=== PATIENT | female | born 1990 | race Caucasian/White ===

== ENCOUNTER 2017-08-24 21:54 | Observation (INO) | payer OTHER ==
[~2017-08-24] VITALS: Ht 157.5 cm; Wt 69.6 kg
[~2017-08-24 21:54] MED LIST: Bactrim Ds Tab1 EACH PO; CRANBERRY TABL1 EACH PO; PROBIOTIC1 EAC1 PO; Pyridium200 MG PO
[2017-08-24] MEDS ORDERED: ESCI10 PO (22:31)
[2017-08-24] MEDS ORDERED: IBUP400 PO (22:31)
[2017-08-24 22:53] LABS: BASOPHILS ABSOLUTE AUTO 0.03 K/mm3 (0.00-0.23); BASOPHILS PERCENT AUTO 0 % (0-2); EOSINOPHILS ABSOLUTE AUTO 0.13 K/mm3 (0.00-0.68); EOSINOPHILS PERCENT AUTO 2 % (0-6); Hemoglobin 12.3 g/dL (11.5-16.0); IMMATURE GRAN ABSOLUTE AUTO 0.02 K/mm3 (0.00-0.10); IMMATURE GRAN PERCENT AUTO 0 % (0-1); LYMPHOCYTES ABSOLUTE AUTO 2.03 K/mm3 (0.84-5.20); LYMPHOCYTES PERCENT AUTO 26 % (21-46); MONOCYTES ABSOLUTE AUTO 0.61 K/mm3 (0.16-1.47); MONOCYTES PERCENT AUTO 8 % (4-13); Mean Corpuscular HGB 26.6 pg (26.0-34.0); Mean Corpuscular HGB Conc 32.4 g/dL (31.5-36.5); Mean Corpuscular Volume 82 fL (80-100); NEUTROPHILS ABSOLUTE AUTO 5.15 K/mm3 (1.96-9.15); NEUTROPHILS PERCENT AUTO 65 % (41-73); Platelet Count 273 K/mm3 (150-400); RDW Coefficient Variation 14.4 % (11.7-14.2); RDW Standard Deviation 42.6 fL (35.1-46.3); Red Blood Cell Count 4.63 M/mm3 (3.80-5.20); White Blood Cell Count 7.97 K/mm3 (4.00-11.30)
[2017-08-24 23:12] LABS: Alanine Aminotransfer (ALT/SGP 24 U/L (12-78); Albumin, Blood 3.8 g/dL (3.4-5.0); Alk Phos 80 U/L (50-136); Anion Gap 8 mmol/L (6-16); Aspartate Aminotrans (AST/SGOT 10 U/L (12-37); Bilirubin, Total 0.2 mg/dL (0.1-1.0); Blood Urea Nitrogen 11 mg/dL (8-24); Bun/Creatinine Ratio 17.3 (12.0-20.0); CO2, Blood 24 mmol/L (21-32); Calcium, Blood 8.8 mg/dL (8.5-10.1); Chloride, Blood 107 mmol/L (98-108); Creatinine, Blood 0.64 mg/dL (0.40-1.00); Globulin, Blood 3.7 g/dL (2.2-4.0); Glomerular Filtration Rate >60 (60-); Glucose, Blood 89 mg/dL (70-99); Potassium, Blood 3.7 mmol/L (3.5-5.5); Sodium, Blood 139 mmol/L (136-145); Total Protein, Blood 7.5 g/dL (6.4-8.2)
[2017-08-25] MEDS ORDERED: PARO10 PO (03:32)
[2017-08-25] MEDS ORDERED: Percocet 7.5-31 EACH PO (15:27)
== END 2017-08-25 15:45 | disposition home or self-care (01) ==
LOC: ER 21:54 → SURS 21:55 → ER 08-25 00:39 → SURS 08-25 00:39
PROVIDERS: Emergency Medicine; Surgery
PROC: BF13YZZ Fluoroscopy of Gallbladder and Bile Ducts using Other Contrast (ICD-10-PCS; principal; 2017-08-25 10:45)
PROC: 0FT44ZZ Resection of Gallbladder, Percutaneous Endoscopic Approach (ICD-10-PCS; principal; 2017-08-25 10:45)
DX: K80.12 Calculus of gallbladder with acute and chronic cholecystitis without obstruction (principal); Z88.8 Allergy status to other drugs, medicaments and biological substances; F17.210 Nicotine dependence, cigarettes, uncomplicated; Z98.890 Other specified postprocedural states
CPT/HCPCS: 36415; 74300; 76705; 80053; 81000; 83690; 84703; 85025; 88304; 99285; C1729; G0378; J0690; J1100; J1170; J1885; J2405; J3010; J7030; J7120

== ENCOUNTER 2018-06-22 19:10 | Emergency (ER) | payer OTHER ==
[~2018-06-22] VITALS: Ht 160 cm; Wt 72.6 kg
[~2018-06-22 19:10] MED LIST changes: +ESCI10 PO; +IBUP400 PO; +PARO10 PO; +Percocet 7.5-31 EACH PO
[2018-06-22] MEDS ORDERED: HYDPAM25 PO (19:35)
[2018-06-22 20:00] LABS: BASOPHILS ABSOLUTE AUTO 0.02 K/mm3 (0.00-0.23); BASOPHILS PERCENT AUTO 0 % (0-2); EOSINOPHILS ABSOLUTE AUTO 0.04 K/mm3 (0.00-0.68); EOSINOPHILS PERCENT AUTO 0 % (0-6); Hematocrit 37.7 % (33.0-51.0); Hemoglobin 12.4 g/dL (11.5-16.0); IMMATURE GRAN ABSOLUTE AUTO 0.04 K/mm3 (0.00-0.10); IMMATURE GRAN PERCENT AUTO 0 % (0-1); LYMPHOCYTES ABSOLUTE AUTO 1.26 K/mm3 (0.84-5.20); LYMPHOCYTES PERCENT AUTO 10 % (21-46); MONOCYTES ABSOLUTE AUTO 0.45 K/mm3 (0.16-1.47); MONOCYTES PERCENT AUTO 4 % (4-13); Mean Corpuscular HGB 27.4 pg (26.0-34.0); Mean Corpuscular HGB Conc 32.9 g/dL (31.5-36.5); Mean Corpuscular Volume 83 fL (80-100); NEUTROPHILS ABSOLUTE AUTO 10.42 K/mm3 (1.96-9.15); NEUTROPHILS PERCENT AUTO 85 % (41-73); Platelet Count 305 K/mm3 (150-400); RDW Coefficient Variation 13.4 % (11.7-14.2); RDW Standard Deviation 40.8 fL (35.1-46.3); Red Blood Cell Count 4.53 M/mm3 (3.80-5.20); White Blood Cell Count 12.23 K/mm3 (4.00-11.30)
[2018-06-22 20:18] LABS: Alanine Aminotransfer (ALT/SGP 25 U/L (12-78); Albumin, Blood 3.9 g/dL (3.4-5.0); Albumin/Globulin Ratio 1.1 (0.8-1.8); Alk Phos 62 U/L (50-136); Anion Gap 7 mmol/L (6-16); Aspartate Aminotrans (AST/SGOT 10 U/L (12-37); Bilirubin, Total 0.1 mg/dL (0.1-1.0); Blood Urea Nitrogen 10 mg/dL (8-24); CO2, Blood 25 mmol/L (21-32); Calcium, Blood 8.5 mg/dL (8.5-10.1); Chloride, Blood 106 mmol/L (98-108); Creatinine, Blood 0.91 mg/dL (0.40-1.00); Globulin, Blood 3.6 g/dL (2.2-4.0); Glomerular Filtration Rate >60 (60-); Glucose, Blood 103 mg/dL (70-99); Potassium, Blood 3.4 mmol/L (3.5-5.5); Sodium, Blood 138 mmol/L (136-145); Total Protein, Blood 7.5 g/dL (6.4-8.2)
[2018-06-22 20:29] LABS: Source, Urine Clean Catch
[2018-06-22 20:36] LABS: Bilirubin, Urine Neg (Neg); Blood, Urine 1+ (Neg); Glucose Qualitative, Urine Neg (Neg); Ketones, Urine Neg (Neg); Leukocyte Esterase, Urine 1+ (Neg); Nitrite, Urine Neg (Neg); Protein, Urine Neg (Neg); Urobilinogen, Urine 1+ (Normal)
[2018-06-22 20:45] LABS: Appearance, Urine Clear (Clear); Color, Urine Yellow (P-Yellow)
[2018-06-22 20:47] LABS: Bacteria Not Seen /hpf; Squamous Epithelial Cells Rare /hpf (Few); White Blood Cells, Urine 0-2 /hpf (0-5)
[2018-06-22] MEDS ORDERED: MIRALAX17 GM PO (20:55)
== END 2018-06-22 21:20 | disposition home or self-care (01) ==
LOC: ER 19:10
DX: K59.00 Constipation, unspecified (principal); F41.9 Anxiety disorder, unspecified; F17.210 Nicotine dependence, cigarettes, uncomplicated
CPT/HCPCS: 36415; 80053; 81001; 81025; 83690; 85025; 99283

== ENCOUNTER 2018-08-03 11:32 | Emergency (ER) | payer OTHER ==
[~2018-08-03] VITALS: Ht 157.5 cm; Wt 72.6 kg
[~2018-08-03 11:32] MED LIST changes: +HYDPAM25 PO; +MIRALAX17 GM PO
== END 2018-08-03 12:23 | disposition home or self-care (01) ==
LOC: ER 11:32
DX: Z00.8 Encounter for other general examination (principal); Z88.8 Allergy status to other drugs, medicaments and biological substances; D64.9 Anemia, unspecified; F17.210 Nicotine dependence, cigarettes, uncomplicated
CPT/HCPCS: 71046; 99283-25

== ENCOUNTER 2018-11-11 06:58 | Day surgery (SDC) | payer BC, OTHER ==
[~2018-11-11] VITALS: Ht 154.9 cm; Wt 74.7 kg
[~2018-11-11 06:58] MED LIST changes: +Ferrous Sulfat325 M2 PO; +PRENATAL PLUS-1 EACH PO
[2018-11-11] MEDS ORDERED: Inderal 20 mg T20 MG PO (07:46)
--- NOTE | 2018-11-11 07:54 | NUR ---
11/11/18 0754 Chata Rodríguez V PT RESTING IN BED, SIDE RAILS IN PLACE, CALL LIGHT WITHIN REACH, VSS. PT TEACHING COMPLETED. PT DENIES PAIN, DISCOMFORT, AND QUESTIONS AT THIS TIME.
== END 2018-11-11 10:18 | disposition home or self-care (01) ==
LOC: ORSCSDS 06:58
PROVIDERS: Obstetrics & Gynecology
PROC: 0UT74ZZ Resection of Bilateral Fallopian Tubes, Percutaneous Endoscopic Approach (ICD-10-PCS; principal; 2018-11-11 08:15)
DX: Z30.2 Encounter for sterilization (principal); F17.210 Nicotine dependence, cigarettes, uncomplicated; Z79.899 Other long term (current) drug therapy
CPT/HCPCS: 88302; J0690; J1100; J1885; J2250; J2405; J2704; J2710; J3010; J7120

== ENCOUNTER 2018-11-25 08:05 | Day surgery (SDC) | payer BC, OTHER ==
[~2018-11-25 08:05] MED LIST changes: +Inderal 20 mg T20 MG PO
== END 2018-11-26 00:02 | disposition home or self-care (01) ==
LOC: MOI US 08:05
PROC: 0H9U3ZX Drainage of Left Breast, Percutaneous Approach, Diagnostic (ICD-10-PCS; principal; 2018-11-25)
DX: N60.02 Solitary cyst of left breast (principal)
CPT/HCPCS: 19000; 76942; 88108

== ENCOUNTER 2021-01-12 16:38 | Emergency (ER) | payer OTHER ==
[~2021-01-12] VITALS: Ht 160 cm; Wt 74.8 kg
== END 2021-01-12 18:03 | disposition left against medical advice (07) ==
LOC: ER 16:38
DX: R06.02 Shortness of breath (principal); R05 Cough; R50.9 Fever, unspecified; Z53.21 Procedure and treatment not carried out due to patient leaving prior to being seen by health care provider
CPT/HCPCS: 99284

== ENCOUNTER 2021-11-03 15:33 | Emergency (ER) | payer OTHER ==
[~2021-11-03] VITALS: Ht 154.9 cm; Wt 74.8 kg
== END 2021-11-03 17:43 | disposition home or self-care (01) ==
LOC: ER 15:33
DX: R07.89 Other chest pain (principal); F17.210 Nicotine dependence, cigarettes, uncomplicated; Z88.8 Allergy status to other drugs, medicaments and biological substances; Z91.09 Other allergy status, other than to drugs and biological substances
CPT/HCPCS: 71045; 93005; 93010

== ENCOUNTER 2023-07-24 23:08 | Emergency (ER) | payer OTHER ==
[~2023-07-24] VITALS: Ht 154.9 cm; Wt 76.2 kg
[2023-07-24 23:34] VITALS: BP 132/81
[2023-07-24] MEDS ORDERED: Cephalexin Monohydrate 500 MG Cap PO ONE (23:50)
[2023-07-24] MEDS ORDERED: CEPH500 PO (23:51)
== END 2023-07-24 23:55 | disposition home or self-care (01) ==
LOC: ER 23:08
DX: T23.251A Burn of second degree of right palm, initial encounter (principal); T31.0 Burns involving less than 10% of body surface; X10.1XXA Contact with hot food, initial encounter; Y93.G3 Activity, cooking and baking; Z88.8 Allergy status to other drugs, medicaments and biological substances; Z91.048 Other nonmedicinal substance allergy status
CPT/HCPCS: 99283; A9270

== ENCOUNTER → 2024-04-07 | Outpatient (CLI) | payer OTHER ==
[~2024-04-07] MED LIST changes: +CEPH500 PO
[2024-04-10 15:04] LABS: HEPATITIS B SURFACE ANTIGEN Negative (Negative)
[2024-04-10 15:21] LABS: HEPATITIS B SURFACE ANTIBODY 11.13 IU/L
[2024-04-10 15:56] LABS: HIV 1,2 COMBO ANTIGEN/ANTIBODY Negative (Negative)
[2024-04-11 06:01] LABS: HCV QNT BY NAAT (IU/ML) Not Detected; HCV QNT BY NAAT (LOG IU/ML) Not Detected; HCV QNT BY NAAT INTERP Not Detected (Not Detected)
== END ==
LOC: LAB SHORT 17:46 → LAB 17:46
PROVIDERS: Chiropractor
DX: Z20.9 Contact with and (suspected) exposure to unspecified communicable disease (principal)
CPT/HCPCS: 84460; 87340; 87389; 87522

== ENCOUNTER → 2024-08-02 | Outpatient (CLI) | payer OTHER ==
[~2024-08-02] MED LIST changes: +AMOX-CLAV 875-1 EAC5; +Cholecalciferol1 GM; +EZETIMIBE10 M6; +IBUP400; +LORAZEPAM0.5 MG
== END ==
LOC: LAB SHORT 09:18 → LAB 09:18
DX: R30.0 Dysuria (principal)
CPT/HCPCS: 87077; 87086; 87186

== ENCOUNTER 2024-08-08 20:29 | Emergency (ER) | payer OTHER ==
[~2024-08-08] VITALS: Ht 160 cm; Wt 68.0 kg
[~2024-08-08 20:29] MED LIST changes: -AMOX-CLAV 875-1 EAC5; -Cholecalciferol1 GM; -EZETIMIBE10 M6; -IBUP400; -LORAZEPAM0.5 MG
[2024-08-08 20:41] VITALS: BP 142/118
== END 2024-08-08 20:54 | disposition left against medical advice (07) ==
LOC: ER 20:29
DX: F99 Mental disorder, not otherwise specified (principal); Z65.8 Other specified problems related to psychosocial circumstances; Z53.21 Procedure and treatment not carried out due to patient leaving prior to being seen by health care provider
CPT/HCPCS: 99281

== ENCOUNTER 2024-08-10 07:36 | Day surgery (SDC) | payer OTHER ==
[~2024-08-10] VITALS: Ht 160 cm; Wt 77.0 kg
[~2024-08-10 07:36] MED LIST changes: +Dexmedetomidine HCL 200 MCG / 2 ML ONE; +Lidocaine HCl 4% 5 ML SDA ONE; +Ropivacaine 0.5% HCL/PF 5 MG/ML 30ML Vial ONE; +propofoL 150 ML IV ONE
[2024-08-10] MEDS ORDERED: AMOX-CLAV 875-1 EAC5 (08:19)
[2024-08-10] MEDS ORDERED: EZETIMIBE10 M6 (08:21)
[2024-08-10] MEDS ORDERED: LORAZEPAM0.5 MG (08:21)
[2024-08-10] MEDS ORDERED: Cholecalciferol1 GM (08:21)
[2024-08-10] MEDS ORDERED: IBUP400 (08:22)
[2024-08-10] MEDS ORDERED: Lactated Ringer's 1,000 ML IV ONE ×2 (08:33→10:32)
[2024-08-10] MEDS ORDERED: Ondansetron HCl 2 MG / ML 2ML Vial ONE (08:34)
[2024-08-10] MEDS ORDERED: Dexamethasone Sod Phos 10 MG/ML 1ML VIAL ONE (08:34)
[2024-08-10] MEDS ORDERED: FentaNYL Citrate 50 MCG/ML 2 ML Injection ONE ×2 (08:34→14:48)
[2024-08-10] MEDS ORDERED: CeFAZolin Sodium 2,000 MG VIAL ONE (08:39)
[2024-08-10] MEDS ORDERED: Midazolam HCl 1MG / ML 2ML Vial ONE (08:51)
[2024-08-10] MEDS ORDERED: Glycopyrrolate 0.2 MG/ML 5ML VIAL ONE (09:33)
[2024-08-10] MEDS ORDERED: Phenylephrine HCl 100 MCG/ML-NS 10MLSYR (1MG/10ML) ONE (09:33)
[2024-08-10] MEDS ORDERED: propofoL 20 ML IV ONE ×4 (10:50→13:31)
[2024-08-10] MEDS ORDERED: HYDROmorphone HCl/Pf 1MG SYR ONE (11:11)
[2024-08-10] MEDS ORDERED: propofoL 40 ML IV ONE (11:34)
[2024-08-10] MEDS ORDERED: Vancomycin HCl 1000 MG ADDvantage ONE (12:36)
[2024-08-10] MEDS ORDERED: propofoL 50 ML IV ONE (14:05)
--- NOTE | 2024-08-10 14:13 | NUR ---
08/10/24 1413 PHYLLIS CONTRERAS PT SLOWLY WAKING UP. REMOVED O2. MAINTAINING O2 AT 95% ON RA
--- NOTE | 2024-08-10 14:40 | NUR ---
08/10/24 1440 MAURICE MOORE UP IN CHAIR, DROWSY BUT AROUSES TO VOICE. ENCOURAGED TO DEEP BREATHE AND COUGH.
[2024-08-10] MEDS ORDERED: OxyCODONE 5 mg/Acetamin 325 mg TABLET ONE (14:49)
[2024-08-10 15:30] VITALS: BP 85/59
== END 2024-08-10 16:10 | disposition home or self-care (01) ==
LOC: ORSCSDS 07:36
PROVIDERS: Podiatrist Foot & Ankle Surgery
PROC: 0L8N0ZZ Division of Right Lower Leg Tendon, Open Approach (ICD-10-PCS; principal; 2024-08-10 09:00)
DX: S86.011A Strain of right Achilles tendon, initial encounter (principal); F17.290 Nicotine dependence, other tobacco product, uncomplicated; J45.909 Unspecified asthma, uncomplicated; F41.9 Anxiety disorder, unspecified; E66.9 Obesity, unspecified; Z68.30 Body mass index [BMI] 30.0-30.9, adult; Z79.899 Other long term (current) drug therapy
CPT/HCPCS: A9270; C1713; J0690; J1100; J1171; J2003; J2250; J2371; J2405; J2704; J2795; J3010; J3370; Q4171